=== PATIENT | male | born 1945 | race Caucasian/White ===

== ENCOUNTER 2018-10-09 08:30 | Emergency (ER) | payer MEDICARE ==
[2018-10-09 09:14] VITALS: BP 164/86
[2018-10-09] MEDS ORDERED: Doxycycline 100 MG Cap PO ONE (09:47)
--- NOTE | 2018-10-09 09:51 | EDM.PDOC ---
ED HPI GENERAL MEDICAL PROBLEM - General Chief Complaint: Bite:Animal, Insect Stated Complaint: TICK STUCK WITH RED PILOT POINT STARTING Time Seen by Provider: 10/09/18 09:43 Source of Information: Reports: Patient, RN Notes Reviewed History Limitations: Reports: No Limitations - History of Present Illness INITIAL COMMENTS - FREE TEXT/NARRATIVE: 73-year-old gentleman presents emergency department today with a tick bite to his right groin area, he found this just this morning he does spend time in the [place] a spray confident wasn't there yesterday he does have a red area about the size of a silver dollar tick was completely removed no other symptoms Right Groin Pain Score (Numeric/FACES): 2 - Related Data Allergies Allergy/AdvReac Type Severity Reaction Status Date / Time No Known Allergies Allergy Verified 12/24/13 10:42 Home Meds: Home Meds NK [No Known Home Meds] 12/24/13 [History] Past Medical History HEENT History: Reports: Impaired Vision Genitourinary History: Reports: Prostate Disorder - Infectious Disease History Infectious Disease History: Reports: Chicken Pox, Measles, Mumps - Past Surgical History GI Surgical History: Reports: Colon, Colonoscopy Social & Family History - Tobacco Use Smoking Status *Q: Never Smoker - Caffeine Use Caffeine Use: Reports: Coffee ED ROS GENERAL - Review of Systems Review Of Systems: See Below Constitutional: Reports: No Symptoms Skin: Reports: Rash, Wound ED EXAM, ANIMAL BITE - Physical Exam Exam: See Below Text/Narrative:: Examination the groin area there is a small ulcer consistent with a tick bite right groin area erythematous region about size of silver dollar I don't appreciate any central clearing at this time Exam Limited By: No Limitations General Appearance: Alert, WD/WN, No Apparent Distress Course - Vital Signs Last Recorded V/S: Last Vital Signs Temp 93.6 F L 10/09/18 09:31 Pulse 68 10/09/18 09:31 Resp 16 10/09/18 09:31 BP 164/86 H 10/09/18 09:31 Pulse Ox 98 10/09/18 09:31 - Orders/Labs/Meds Orders: Active Orders 24 hr Category Date Time Status Doxycycline [Vibramycin] Med 10/09/18 09:47 Once 200 mg PO ONETIME ONE Departure - Departure Time of Disposition: 09:51 Disposition: Home, Self-Care 01 Condition: Fair Clinical Impression: Tick bite Qualifiers: Encounter type: initial encounter Qualified Code(s): W57.XXXA - Bitten or stung by nonvenomous insect and other nonvenomous arthropods, initial encounter - Discharge Information Referrals: PCP,None [Primary Care Provider] - Additional Instructions: Please followup with your primary care provider in 3-5 days if not better, please call return to the emergency department with worsening of symptoms. - My Orders Last 24 Hours: My Active Orders 10/09/18 09:47 Doxycycline [Vibramycin] 200 mg PO ONETIME ONE - Assessment/Plan Last 24 Hours: My Active Orders 10/09/18 09:47 Doxycycline [Vibramycin] 200 mg PO ONETIME ONE Plan: Assessment Acuity = acute Site and laterality = deer tick exposure right groin Etiology = Ixodes scapularis Manifestations = rash Location of injury = Home Lab values = [none Plan Elected to treat empirically doxycycline 200 mg 1, follow-up primary care 3-5 days if no improvement This note was dictated using [employer] voice recognition software please call with any questions on syntax or grammar.
== END 2018-10-09 09:59 | disposition home or self-care (01) ==
LOC: JP.ED 08:30
DX: S30.861A Insect bite (nonvenomous) of abdominal wall, initial encounter (principal); W57.XXXA Bitten or stung by nonvenomous insect and other nonvenomous arthropods, initial encounter; B88.8 Other specified infestations
CPT/HCPCS: 99281; A9270

== ENCOUNTER 2024-07-27 12:19 | Emergency (ER) | payer MEDICARE, OTHER ==
[2024-07-27 12:40] LABS: BASOPHILS ABSOLUTE AUTO 0.04 K/uL (0.00-0.10); BASOPHILS PERCENT AUTO 0.6 % (0.1-1.3); EOSINOPHILS ABSOLUTE AUTO 0.15 K/uL (0.00-0.40); EOSINOPHILS PERCENT AUTO 2.1 % (0.0-5.4); HEMATOCRIT 40.4 % (38.4-49.7); HEMOGLOBIN 13.3 g/dL (12.9-16.9); IMMATURE GRAN PERCENT AUTO 0.3 % (0.0-0.7); LYMPHOCYTES ABSOLUTE AUTO 2.52 K/uL (0.8-3.3); LYMPHOCYTES PERCENT AUTO 35.9 % (11.4-47.7); MEAN CORPUSCULAR HEMOGLOBIN 31.1 pg (31.6-35.5); MEAN CORPUSCULAR HGB CONC 32.9 g/dL (31.6-35.5); MEAN CORPUSCULAR VOLUME 94.6 fL (81.4-99.0); MONOCYTES PERCENT AUTO 7.1 % (3.3-12.6); NEUTROPHILS ABSOLUTE AUTO 3.78 K/uL (1.0-7.6); PLATELET COUNT,PLT 254 K/uL (130-375); RED BLOOD CELL COUNT 4.27 M/uL (4.14-5.76)
[2024-07-27 12:41] LABS: IMMATURE GRAN ABSOLUTE AUTO 0.02 K/uL (0.00-0.23)
[2024-07-27 13:01] LABS: A/G RATIO 1.3 (1.2-2.2); ALANINE AMINOTRANSFERASE,ALT 43 U/L (12-78); ALBUMIN 4.3 g/dL (3.4-5.0); ALKALINE PHOSPHATASE 63 U/L (46-116); ANION GAP 11.1 mmol/L (5.0-14.0); ASPARTATE AMNIOTRANSFERASE,AST 33 U/L (15-37); BILIRUBIN TOTAL 0.5 mg/dL (0.2-1.0); BLOOD UREA NITROGEN,BUN 20 mg/dL (7-18); CALCIUM 9.2 mg/dL (8.5-10.1); CARBON DIOXIDE,CO2 25 mmol/L (21-32); CHLORIDE,CL 105 mmol/L (100-108); CREATININE 1.2 mg/dL (0.8-1.3); ESTIMATED GFR 62 mL/min (>60); GLUCOSE RANDOM 144 mg/dL (74-106); PROTEIN TOTAL,TP 7.5 g/dL (6.4-8.2); SODIUM,NA 141 mmol/L (140-148)
[2024-07-27] MEDS: Sodium Chloride 0.9% 80 ML IV ONE (14:26)
[2024-07-27] MEDS: Sodium Chloride 0.9% 10 ML Syringe FLUSH PRN (14:27)
[2024-07-27] MEDS: Iopamidol 755 Mg/ML 100 ML Bottle IV SCH (14:27)
[2024-07-27] MEDS: Aspirin 81 MG Tab.Chew PO ONE (16:06)
[2024-07-27] MEDS: Clopidogrel 75 MG Tab PO ONE (16:06)
[2024-07-27 16:26] VITALS: BP 157/84; PULSE 88
== END 2024-07-27 16:26 ==
LOC: JP.ED 12:19
DX: G45.9 Transient cerebral ischemic attack, unspecified (principal); I66.9 Occlusion and stenosis of unspecified cerebral artery; I10 Essential (primary) hypertension; Z79.899 Other long term (current) drug therapy
CPT/HCPCS: 36415; 70450; 70496; 70498; 80053; 82947; 85025; 93005; 93010; 99285; A9270; Q9967